=== PATIENT | female | born 1970 | race Caucasian/White ===

== ENCOUNTER 2022-08-21 11:27 | Emergency (ER) | payer OTHER ==
[2022-08-21 11:40] VITALS: RESP 18; TEMP 98.1
[2022-08-21] MEDS ORDERED: SODIUM CHLORIDE 0.9% 500 ML 500 ML IV STA (11:52)
[2022-08-21] MEDS ORDERED: HYDROmorphone 0.5 MG/0.5 ML SYRINGE IVP STA (11:54)
--- NOTE | 2022-08-21 12:34 | XR ---
EXAMINATION TYPE: XR chest 2V DATE OF EXAM: 08/21/2022 COMPARISON: NONE HISTORY: Chest pain TECHNIQUE: Frontal and lateral views of the chest are obtained. FINDINGS: The heart size is normal. The cardiomediastinal silhouette and pulmonary vasculature are w ithin normal limits. There is no focal consolidation, significant pleural effusion, or pneumothorax. IMPRESSION: No acute cardiopulmonary process.
[2022-08-21 12:49] LABS: ALT 25 U/L (4-34); AST 28 U/L (14-36); African American GFR (CKD) >90 (>60 ml/min/1.73 sqM); Alkaline Phosphatase 95 U/L (38-126); Anion Gap 8 mmol/L; Blood Urea Nitrogen 4 mg/dL (7-17); Calcium 9.3 mg/dL (8.4-10.2); Carbon Dioxide 24 mmol/L (22-30); Chloride 109 mmol/L (98-107); Glucose 113 mg/dL (74-99); Non-African American GFR(CKD) >90 (>60 ml/min/1.73 sqM); Potassium 3.5 mmol/L (3.5-5.1); Sodium 141 mmol/L (137-145); Total Bilirubin 0.6 mg/dL (0.2-1.3); Total Protein 6.8 g/dL (6.3-8.2)
[2022-08-21 12:53] LABS: Basophils % (A) 0 %; Eosinophils # (A) 0.1 k/uL (0-0.7); Eosinophils % (A) 1 %; HCT 44.2 % (34.0-46.0); Lymphocytes # (A) 2.3 k/uL (1.0-4.8); Lymphocytes % (A) 21 %; MCH 32.2 pg (25.0-35.0); MCV 94.8 fL (80.0-100.0); Mean Platelet Volume 7.6; Monocytes # (A) 0.6 k/uL (0-1.0); Monocytes % (A) 6 %; Neutrophils # (A) 7.6 k/uL (1.3-7.7); Neutrophils % (A) 71 %; Platelet Count 279 k/uL (150-450); RBC 4.66 m/uL (3.80-5.40); RDW 12.8 % (11.5-15.5); WBC 10.8 k/uL (3.8-10.6)
[2022-08-21 12:55] LABS: Appearance,Urine Clear (Clear); Bilirubin,Urine Negative (Negative); Blood,Urine Negative (Negative); Color,Urine Yellow; Glucose,Urine (UA) Negative (Negative); Ketones,Urine Negative (Negative); Leukocyte Esterase,Urine Negative (Negative); Nitrite,Urine Negative (Negative); PH, Urine 7.5 (5.0-8.0); Protein,Urine Negative (Negative); Specific Gravity,Urine 1.009 (1.001-1.035); Urobilinogen,Urine <2.0 mg/dL (<2.0)
--- NOTE | 2022-08-21 13:10 | ED ---
General Adult HPI - General Chief complaint: Chest Pain Stated complaint: Urogenital Time Seen by Provider: 08/21/22 11:40 Source: patient, RN notes reviewed, old records reviewed Mode of arrival: ambulatory Limitations: no limitations - History of Present Illness Initial comments: This a 52-year-old female presents emergency Department complaining that she has had problems in the rectal and vaginal areas over the last month. She can find a primary medical care doctor and she states the pain is been some excruciating that she needs to come in today. Patient states the pressure on her rectum and she thinks she was having rectal prolapse but the mass that needs to be there is no longer there. And now she feels as though something is in her vagina. Patient states mainly she came in today because she started to experience severe pain in that she felt as though the pain was causing sweat and feels so she was short of breath. Patient states she had little sharp chest pain that lasts one or 2 seconds but nothing significant. Patient denies any fever chills. Patient denies a cough per patient denies lightheadedness or dizziness. After I went back in and interviewed her when the pain was under control she was missed understanding what was going on she does not have any rectal prolapse she states it's a rectocele she believes coming out of her vagina. Patient states also her abdomen was very distended at one point time and she had bilateral leg swelling when this occurred. Patient states she had an ultrasound a pelvis and legs 2 days ago and they were negative according to the primary medical care doctor - Related Data Home Medications Medication Instructions Recorded Confirmed ALPRAZolam [Xanax] 0.5 mg PO DAILY PRN 08/21/22 08/21/22 Albuterol Sulfate [Ventolin HFA] 1 puff INHALATION RT-Q4H PRN 08/21/22 08/21/22 Baclofen [Lioresal] 20 mg PO HS 08/21/22 08/21/22 Ergocalciferol (Vitamin D2) 1,250 mcg PO SA 08/21/22 08/21/22 [Drisdol (50,000 Iu)] Famotidine [Pepcid] 40 mg PO HS 08/21/22 08/21/22 Ibuprofen [Motrin] 800 mg PO BID-W/MEALS PRN 08/21/22 08/21/22 Omeprazole [PriLOSEC] 40 mg PO DAILY 08/21/22 08/21/22 Ondansetron [Zofran] 4 mg PO Q12HR PRN 08/21/22 08/21/22 guanFACINE [Tenex] 1 mg PO TID 08/21/22 08/21/22 Allergies Allergy/AdvReac Type Severity Reaction Status Date / Time hydrocodone [From Vicodin] Allergy Swelling Verified 08/21/22 14:40 Review of Systems ROS Statement: Those systems with pertinent positive or pertinent negative responses have been documented in the HPI. ROS Other: All systems not noted in ROS Statement are negative. Past Medical History Past Medical History: Neurologic Disorder Additional Past Medical History / Comment(s): CMT, History of Any Multi-Drug Resistant Organisms: None Reported Past Surgical History: Uterine Ablation Additional Past Surgical History / Comment(s): des gallegos Past Psychological History: Anxiety Smoking Status: Current every day smoker Past Alcohol Use History: None Reported Past Drug Use History: Marijuana General Exam - General Exam Comments Initial Comments: GENERAL: Patient is well-developed and well-nourished. Patient is nontoxic and well- hydrated and is in mild distress. ENT: Neck is soft and supple. No significant lymphadenopathy is noted. Oropharynx is clear. Moist mucous membranes. Neck has full range of motion without eliciting any pain. EYES: The sclera were anicteric and conjunctiva were pink and moist. Extraocular movements were intact and pupils were equal round and reactive to light. Eyelids were unremarkable. PULMONARY: Unlabored respirations. Good breath sounds bilaterally. No audible rales rhonchi or wheezing was noted. CARDIOVASCULAR: There is a regular rate and rhythm without any murmurs gallops or rubs. ABDOMEN: Soft and nontender with normal bowel sounds. SKIN: Skin is clear with no lesions or rashes and otherwise unremarkable. NEUROLOGIC: Patient is alert and oriented x3. Cranial nerves II through XII are grossly intact. Motor and sensory are also intact. Normal speech, volume and content. Symmetrical smile. MUSCULOSKELETAL: Normal extremities with adequate strength and full range of motion. LYMPHATICS: No significant lymphadenopathy is noted PSYCHIATRIC: Normal psychiatric evaluation. GENITALIA: I did a bimanual exam and a speculum exam and I no rectocele or no mass or anything that would explain the bulging that the patient experienced Limitations: no limitations Course Vital Signs 08/21/22 11:35 Temperature 98.1 F Pulse Rate 108 H Respiratory 18 Rate Blood Pressure 133/80 O2 Sat by Pulse 99 Oximetry Medical Decision Making - Medical Decision Making EKG was interpreted by myself shows a sinus rhythm at 89 bpm NV interval 111 QRSs 87 2 QT interval 360 QTC is 416. Patient's EKG shows no ST segment elevation or depression Was pt. sent in by a medical professional or institution (, PA, AUDIT SPEC, urgent care, hospital, or half-way...) When possible be specific @ -No Did you speak to anyone other than the patient for history (EMS, parent, family, police, friend...)? What history was obtained from this source @ -No Did you review nursing and triage notes (agree or disagree)? Why? @ -I reviewed and agree with nursing and triage notes Were old charts reviewed (outside hosp., previous admission, EMS record, old EKG, old radiological studies, urgent care reports/EKG's, half-way records)? Report findings @ -No old charts were reviewed Differential Diagnosis (chest pain, altered mental status, abdominal pain women, abdominal pain men, vaginal bleeding, weakness, fever, dyspnea, syncope, headache, dizziness, GI bleed, back pain, seizure, CVA, palpatations, mental health, musculoskeletal)? @ -Differential Chest Pain: Stable Angina, Unstable Angina, STEMI, NSTEMI Aortic Dissection, Pneumothorax, Musculoskeletal, Esophageal Spasm GERD, Cholecystitis, Pancreatitis, Zoster, this is not meant to be an all-inclusive list. Differential Abdominal Pain Men: Appendicitis, cholecystitis, diverticulosis, rectocele, ischemic bowel, pancreatitis, hepatitis, UTI, gastroenteritis, AAA, incarcerated hernia, bowel obstruction, constipation, inflammatory bowel, hepatitis, peptic ulcer disease, splenic infarction, perforated viscus, testicular torsion, this is not meant to be an all-inclusive list EKG interpreted by me (3pts min.). @ -As above X-rays interpreted by me (1pt min.). @ -Chest x-ray was interpreted by me that showed no acute abnormality. CT interpreted by me (1pt min.). @ -CT of the abdomen and pelvis was interpreted by myself and it showed no acute abnormality U/S interpreted by me (1pt. min.). @ -None done What testing was considered but not performed or refused? (CT, X-rays, U/S, labs)? Why? @ -None What meds were considered but not given or refused? Why? @ -None Did you discuss the management of the patient with other professionals (edyta almanzar i.e. , PA, AUDIT SPEC, lab, RT, psych nurse, long term care social worker, statistics intern, teacher, space operations officer, case packer and sealer)? Give summary @ -No Was smoking cessation discussed for >3mins.? @ -No Was critical care preformed (if so, how long)? @ -No Were there social determinants of health that impacted care today? How? (Homelessness, low income, unemployed, alcoholism, drug addiction, transpor tation, low edu. Level, literacy, decrease access to med. care, correction, rehab)? @ -No Was there de-escalation of care discussed even if they declined (Discuss DNR or withdrawal of care, Hospice)? DNR status @ -No What co-morbidities impacted this encounter? (DM, HTN, Smoking, COPD, CAD, Cancer, CVA, ARF, Chemo, Hep., AIDS, mental health diagnosis, sleep apnea, morbid obesity)? @ -None Was patient admitted / discharged? Hospital course, mention meds given and route, prescriptions, significant lab abnormalities, going to OR and other pertinent info. @ -Initially patient was stating that she had a rectal prolapse but after I went back and into the exam on her she was stating that she did not have anything coming out of her anus she described bulging out of her vagina which was not her original description. On examination I saw no rectocele but no bulging felt no masses on bimanual exam or on speculum exam. There was no prolapsed rectum either. Patient did receive pain medicine and was doing considerably better. Patient's EKG showed no acute abnormality. I spoke with Dr. Gio Powers stated that she would see the patient next week. Undiagnosed new problem with uncertain prognosis? @ -No Drug Therapy requiring intensive monitoring for toxicity (Heparin, Nitro, Insulin, Cardizem)? @ -No Were any procedures done? @ -No Diagnosis/symptom? @ -Vaginal pain Acute, or Chronic, or Acute on Chronic? @ -Acute Uncomplicated (without systemic symptoms) or Complicated (systemic symptoms)? @ -Complicated Side effects of treatment? @ -No Exacerbation, Progression, or Severe Exacerbation? @ -No Poses a threat to life or bodily function? How? (Chest pain, USA, DC, pneumonia, PE, COPD, DKA, ARF, appy, cholecystitis, CVA, Diverticulitis, Homicidal, Suicidal, threat to staff... and all critical care pts) @ -No - Lab Data Result diagrams: 08/21/22 12:06 08/21/22 12:06 Lab Results 08/21/22 08/21/22 08/21/22 Range/Units 12:06 12:06 12:06 WBC 10.8 H (3.8-10.6) k/uL RBC 4.66 (3.80-5.40) m/uL Hgb 15.0 (11.4-16.0) gm/dL Hct 44.2 (34.0-46.0) % MCV 94.8 (80.0-100.0) fL MCH 32.2 (25.0-35.0) pg MCHC 34.0 (31.0-37.0) g/dL RDW 12.8 (11.5-15.5) % Plt Count 279 (150-450) k/uL MPV 7.6 Neutrophils % 71 % Lymphocytes % 21 % Monocytes % 6 % Eosinophils % 1 % Basophils % 0 % Neutrophils # 7.6 (1.3-7.7) k/uL Lymphocytes # 2.3 (1.0-4.8) k/uL Monocytes # 0.6 (0-1.0) k/uL Eosinophils # 0.1 (0-0.7) k/uL Basophils # 0.0 (0-0.2) k/uL PT 10.6 (9.0-12.0) sec INR 1.0 (<1.2) APTT 23.1 (22.0-30.0) sec Sodium 141 (137-145) mmol/L Potassium 3.5 (3.5-5.1) mmol/L Chloride 109 H (98-107) mmol/L Carbon Dioxide 24 (22-30) mmol/L Anion Gap 8 mmol/L BUN 4 L (7-17) mg/dL Creatinine 0.64 (0.52-1.04) mg/dL Est GFR (CKD-EPI)AfAm >90 (>60 ml/min/1.73 sqM) Est GFR (CKD-EPI)NonAf >90 (>60 ml/min/1.73 sqM) Glucose 113 H (74-99) mg/dL Calcium 9.3 (8.4-10.2) mg/dL Magnesium 2.0 (1.6-2.3) mg/dL Total Bilirubin 0.6 (0.2-1.3) mg/dL AST 28 (14-36) U/L ALT 25 (4-34) U/L Alkaline Phosphatase 95 (38-126) U/L Troponin I (0.000-0.034) ng/mL Total Protein 6.8 (6.3-8.2) g/dL Albumin 4.0 (3.5-5.0) g/dL Urine Color Urine Appearance (Clear) Urine pH (5.0-8.0) Ur Specific [place] (1.001-1.035) Urine Protein (Negative) Urine Glucose (UA) (Negative) Urine Ketones (Negative) Urine Blood (Negative) Urine Nitrite (Negative) Urine Bilirubin (Negative) Urine Urobilinogen (<2.0) mg/dL Ur Leukocyte Esterase (Negative) 08/21/22 08/21/22 Range/Units 12:06 12:15 WBC (3.8-10.6) k/uL RBC (3.80-5.40) m/uL Hgb (11.4-16.0) gm/dL Hct (34.0-46.0) % MCV (80.0-100.0) fL MCH (25.0-35.0) pg MCHC (31.0-37.0) g/dL RDW (11.5-15.5) % Plt Count (150-450) k/uL MPV Neutrophils % % Lymphocytes % % Monocytes % % Eosinophils % % Basophils % % Neutrophils # (1.3-7.7) k/uL Lymphocytes # (1.0-4.8) k/uL Monocytes # (0-1.0) k/uL Eosinophils # (0-0.7) k/uL Basophils # (0-0.2) k/uL PT (9.0-12.0) sec INR (<1.2) APTT (22.0-30.0) sec Sodium (137-145) mmol/L Potassium (3.5-5.1) mmol/L Chloride (98-107) mmol/L Carbon Dioxide (22-30) mmol/L Anion Gap mmol/L BUN (7-17) mg/dL Creatinine (0.52-1.04) mg/dL Est GFR (CKD-EPI)AfAm (>60 ml/min/1.73 sqM) Est GFR (CKD-EPI)NonAf (>60 ml/min/1.73 sqM) Glucose (74-99) mg/dL Calcium (8.4-10.2) mg/dL Magnesium (1.6-2.3) mg/dL Total Bilirubin (0.2-1.3) mg/dL AST (14-36) U/L ALT (4-34) U/L Alkaline Phosphatase (38-126) U/L Troponin I <0.012 (0.000-0.034) ng/mL Total Protein (6.3-8.2) g/dL Albumin (3.5-5.0) g/dL Urine Color Yellow Urine Appearance Clear (Clear) Urine pH 7.5 (5.0-8.0) Ur Specific [place] 1.009 (1.001-1.035) Urine Protein Negative (Negative) Urine Glucose (UA) Negative (Negative) Urine Ketones Negative (Negative) Urine Blood Negative (Negative) Urine Nitrite Negative (Negative) Urine Bilirubin Negative (Negative) Urine Urobilinogen <2.0 (<2.0) mg/dL Ur Leukocyte Esterase Negative (Negative) Disposition Clinical Impression: Vaginal discomfort Disposition: HOME SELF-CARE Condition: Good Instructions (If sedation given, give patient instructions): Uterine Prolapse (ED), Rectocele (ED) Is patient prescribed a controlled substance at d/c from ED?: No Referrals: Millicent Powers DO [Doctor of Osteopathic Medicine] - 1-2 days Time of Disposition: 14:54
[2022-08-21 13:14] LABS: Partial Thromboplastin Time 23.1 sec (22.0-30.0); Prothrombin Time 10.6 sec (9.0-12.0)
--- NOTE | 2022-08-21 14:31 | CT ---
EXAMINATION TYPE: CT abdomen pelvis w con DATE OF EXAM: 08/21/2022 HISTORY: vaginal pain CT DLP: 639.1mGycm Automated Exposure Control for Dose Reduction was Utilized. CONTRAST: CT scan of the abdomen and pelvis is performed without oral and with IV Contrast, patient injected wi th 100 mL of Isovue 300. COMPARISON: None. FINDINGS: LUNG BASES: Tiny pericardial effusion along the anterior inferior aspect. LIVER/GB: No significant abnormality is appreciated. PANCREAS: No significant abnormality is seen. SPLEEN: No significant abnormality is seen. ADRENALS: No significant abnormality is seen. KIDNEYS: No significant abnormality is seen. BOWEL: Slightly suboptimal evaluation without enteric contrast. No suspicious small or large bowel di latation. Low-lying cecum into the right pelvis UTERUS/ADNEXA: Anteverted uterus. Multiple scattered small rounded pelvic phleboliths. LYMPH NODES: No greater than 1cm abdominal or pelvic lymph nodes are appreciated. OSSEOUS STRUCTURES: Mild to moderate anterior spurring and disc space narrowing L2-L3 level. Some fac et arthropathy in the lower lumbar levels OTHER: No significant additional abnormality is seen. IMPRESSION: No significant acute finding is seen to account for patient's clinical symptoms of vagina l pain.
[2022-08-21 15:09] VITALS: BP 138/77; PULSE 74
== END 2022-08-21 15:09 | disposition home or self-care (01) ==
LOC: EC 11:27
DX: N76.89 Other specified inflammation of vagina and vulva (principal); F41.9 Anxiety disorder, unspecified; F17.200 Nicotine dependence, unspecified, uncomplicated; F12.90 Cannabis use, unspecified, uncomplicated; Z88.5 Allergy status to narcotic agent
CPT/HCPCS: 36415; 80053; 83735; 84484; 85025; 85610; 85730; 81003; 71046; 74177; 99285; 96374; 96361; J1170; Q9967; 93005

== ENCOUNTER 2022-12-01 06:24 | Day surgery (SDC) | payer OTHER ==
[2022-11-24 14:40] VITALS: BMI 23.3
[~2022-12-01 06:24] MED LIST: LACTATED RINGERS 1,000 ML IV SCH
[2022-12-01 07:16] VITALS: RESP 16; TEMP 97.2
[2022-12-01] MEDS ORDERED: LIDOCAINE 2% INJ 20 MG/ML (2 ML VIAL) ONE (07:23)
[2022-12-01] MEDS ORDERED: PROPOFOL 10 MG/ML 20 ML VIAL IV ONE (07:23)
--- NOTE | 2022-12-01 07:47 | P.PCN ---
Date of Procedure: 12/01/22 Procedure(s) Performed: Brief history: Patient is a pleasant 52-year-old white white female scheduled for an elective upper endoscopy as well as colonoscopy as a part of evaluation of GERD/change in bowel habits Procedure performed: Esophagogastroduodenoscopywith biopsy Colonoscopy Preoperative diagnosis: GERD Change in bowel habits Anesthesia: MAC Procedure: After informed consent was obtained from the patient was brought into the endoscopy unit and IV sedation was administered by anesthesia under continuous monitoring. Initially upper endoscopy was done. The Olympus GF 160 video endoscope was inserted inserted into the mouth and esophagus intubated without any difficulty and was gradually advanced into the stomach and duodenum and carefully examined. The bulb and second part of the duodenum appeared normal. The scope was then withdrawn into the stomach adequately insufflated with air and upon careful examination the antrumhad mild gastritis and biopsies were done from this area. Mucosa of the body, cardia and fundus appeared normal. The scope was then withdrawn into the esophagus. Small hiatal hernia seen. The GE junction was located at 40 cm to the incisors. It appeared regular with 2 superficial erosions consistent with LA grade a reflux esophagitis. Rest of the esophagus appeared normal. Patient tolerated the procedure well. At this time the patient continued to remain sedation. Initial digital rectal examination was normal. Olympus CF 160 video colonoscope was then inserted into the rectum and gradually advanced to the cecum without any difficulty. Careful examination was performed as the scope was gradually being withdrawn. The prep was excellent. The cecum, ascending colon, transverse colon, descending colon, sigmoid colon and rectum appeared normal. Retroflexion was performed in the rectum and no lesions were noted. Patient tolerated the procedure well. Impression: 1.Upper endoscopy revealed small hiatal hernia, mild antral gastritis and LA grade A reflux esophagitis 2.Colonoscopy was within normal limits with no evidence of colorectal neoplasia Recommendations: Findings of this examination were discussed with the patient as well velasquez family. She was advised to continue with omeprazole 40 mg daily and follow antireflux measures. Recommend repeat screening colonoscopy in 10 years.
[2022-12-01 08:53] VITALS: BP 135/78; PULSE 62
== END 2022-12-01 08:22 | disposition home or self-care (01) ==
LOC: ORWHC2ENDO 06:24
PROVIDERS: ATTEND Internal Medicine Gastroenterology
DX: K29.50 Unspecified chronic gastritis without bleeding (principal); K44.9 Diaphragmatic hernia without obstruction or gangrene; K59.09 Other constipation; K21.00 Gastro-esophageal reflux disease with esophagitis, without bleeding; F12.90 Cannabis use, unspecified, uncomplicated; J45.909 Unspecified asthma, uncomplicated; Z87.891 Personal history of nicotine dependence; Z79.899 Other long term (current) drug therapy
CPT/HCPCS: 88305; 45378; 43239; J2704; J2001

== ENCOUNTER 2023-01-14 05:34 | Day surgery (SDC) | payer OTHER ==
[2023-01-11 18:01] VITALS: BMI 22.8
--- NOTE | 2023-01-13 14:37 | P.HPOB ---
History of Present Illness H&P Date: 01/13/23 Chief Complaint: pelvic organ prolapse 52 year old presents for Total Laparoscopic hysterectomy bilateral salpingo-oopherectomy using da lonnie and diagnostic cystoscopy, possible anterior, posterior repair and possible BRYNN BSO. Review of Systems All systems: negative Constitutional: Denies chills, Denies fever Eyes: denies blurred vision, denies pain Ears, nose, mouth and throat: Denies headache, Denies sore throat Cardiovascular: Denies chest pain, Denies shortness of breath Respiratory: Denies cough Gastrointestinal: Denies abdominal pain, Denies diarrhea, Denies nausea, Denies vomiting Genitourinary: Denies dysuria, Denies hematuria Musculoskeletal: Denies myalgias Integumentary: Denies pruritus, Denies rash Neurological: Denies numbness, Denies weakness Psychiatric: Denies anxiety, Denies depression Endocrine: Denies fatigue, Denies weight change Past Medical History Past Medical History: Asthma, Neurologic Disorder, Pneumonia Additional Past Medical History / Comment(s): CMT History of Any Multi-Drug Resistant Organisms: None Reported Past Surgical History: Uterine Ablation Additional Past Surgical History / Comment(s): ABDOMINOPLASTY. BREAST AUGMENTATION AND REMOVAL Past Anesthesia/Blood Transfusion Reactions: No Reported Reaction Additional Past Anesthesia/Blood Transfusion Reaction / Comment(s): no blood transfusion Past Psychological History: ADD/ADHD, Anxiety, Depression, Panic Disorder, PTSD Smoking Status: Current every day smoker Past Alcohol Use History: None Reported Additional Past Alcohol Use History / Comment(s): smokes 1 ppd Past Drug Use History: Marijuana Additional Drug Use History / Comment(s): edibles ,gummies , smokes daily - Past Family History Mother Family Medical History: No Reported History Medications and Allergies Home Medications Medication Instructions Recorded Confirmed Type ALPRAZolam [Xanax] 0.5 mg PO DAILY PRN 08/21/22 01/11/23 History Albuterol Sulfate [Ventolin HFA] 1 puff INHALATION RT-Q4H PRN 08/21/22 01/11/23 History Baclofen [Lioresal] 20 mg PO HS 08/21/22 01/11/23 History Ergocalciferol (Vitamin D2) 1,250 mcg PO SA 08/21/22 01/11/23 History [Drisdol (50,000 Iu)] Famotidine [Pepcid] 40 mg PO HS 08/21/22 01/11/23 History Ibuprofen [Motrin] 800 mg PO BID-W/MEALS PRN 08/21/22 01/11/23 History Omeprazole [PriLOSEC] 40 mg PO DAILY 08/21/22 01/11/23 History Ondansetron [Zofran] 4 mg PO Q12HR PRN 08/21/22 01/11/23 History DULoxetine HCL [Cymbalta] 30 mg PO DAILY 11/24/22 01/11/23 History Doxepin HCl [SINEquan] 100 mg PO DAILY 11/24/22 01/11/23 History Gabapentin 600 mg PO HS 11/24/22 01/11/23 History Gabapentin [Neurontin] 200 mg PO DAILY 11/24/22 01/11/23 History Montelukast [Singulair] 10 mg PO DAILY 11/24/22 01/11/23 History Sennosides/Docusate Sodium 1 each PO Q48H 11/24/22 01/11/23 History [Senna-S 8.6-50 mg Tablet] busPIRone HCL [Buspar] 15 mg PO TID 11/24/22 01/11/23 History clonazePAM [KlonoPIN] 1 mg PO BID 01/11/23 01/11/23 History Allergies Allergy/AdvReac Type Severity Reaction Status Date / Time hydrocodone [From Vicodin] Allergy Swelling Verified 01/11/23 17:50 Exam Osteopathic Statement: *. No significant issues noted on an osteopathic structural exam other than those noted in the History and Physical/Consult. HEart: RRR Lungs: CTAB Abdomen: soft, nontender Extremeties: neg martha's Assessment and Plan (1) Pelvic organ prolapse quantification stage 1 cystocele Status: Acute Code(s): N81.10 - CYSTOCELE, UNSPECIFIED SNOMED Code(s): 004742584 Plan: 1. TLH BSO using da lonnie, diagnostic cystoscopy, possible A/P repair and possible BRYNN BSO
[~2023-01-14 05:34] MED LIST changes: +DEXAMETHASONE SOD PHOSPHATE 4 MG/ML 1 ML VIAL IV ONE; -LACTATED RINGERS 1,000 ML IV SCH; +ONDANSETRON 4 MG/2 ML VIAL IVP ONE; +fentaNYL (PF) 50 MCG/ML 2 ML AMP IV PRN
[2023-01-14] MEDS: LACTATED RINGERS 1,000 ML IV SCH (06:13)
[2023-01-14] MEDS ORDERED: MIDAZOLAM 2 MG/2 ML VIAL IVP ONE (06:50)
[2023-01-14] MEDS ORDERED: fentaNYL (PF) 50 MCG/ML 2 ML AMP IVP ONE ×2 (06:51→06:55)
[2023-01-14] MEDS ORDERED: SCOPOLAMINE 1 MG/72 HR PATCH TRANSDERM ONE (06:52)
--- NOTE | 2023-01-14 07:10 | P.ANPRN ---
Procedure Note - Anesthesia - Nerve Block Performed Bilateral Transversus Abdominis Single Indication: Acute Post-Operative Pain, Requested by Surgeon Sedation Type: Sedate with meaningful contact maintained Preparation: Sterile Prep Position: Supine Catheter: None Needle Types: Facet Needle Gauge: 21 Ultrasound used to visualize needle placement: Yes Ultrasound used to observe medication spread: Yes Injectate: 0.5% Ropivacaine (see comment for volume) (30 mls +20 mls NS(25 mls on each side)) Blood Aspirated: No Pain Paresthesia on Injection Noted: No Resistance on Injection: Normal Image Stored and Saved: Yes
[2023-01-14] MEDS ORDERED: fentaNYL (PF) 50 MCG/ML 2 ML AMP ONE (07:15)
[2023-01-14] MEDS ORDERED: SODIUM CHLORIDE 0.9% (PF) 10 ML VIAL ONE (07:15)
[2023-01-14] MEDS ORDERED: ROCURONIUM 10 MG/ML (5 ML VIAL) IV ONE (07:15)
[2023-01-14] MEDS ORDERED: KETOROLAC 15 MG/ML 1 ML VIAL ONE (07:15)
[2023-01-14] MEDS ORDERED: HYDROmorphone (PF) 1 MG/ML ONE (07:15)
[2023-01-14] MEDS ORDERED: PROPOFOL 10 MG/ML 20 ML VIAL IV ONE (07:15)
[2023-01-14] MEDS ORDERED: PHENYLEPHRINE-0.9% NACL SYG 1,000 MCG/10 ML SYRINGE ONE (07:15)
[2023-01-14] MEDS ORDERED: ROPIVACAINE 5 MG/ML 30 ML VIAL ONE (07:15)
[2023-01-14] MEDS ORDERED: LIDOCAINE 2% INJ 20 MG/ML (2 ML VIAL) ONE (07:15)
[2023-01-14] MEDS ORDERED: NEOSTIGMINE 1 MG/ML 10 ML VIAL ONE (07:15)
[2023-01-14] MEDS ORDERED: SUCCINYLCHOLINE CHLORIDE 200 MG/10 ML VIAL IV ONE (07:15)
[2023-01-14] MEDS ORDERED: GLYCOPYRROLATE 0.2 MG/ML 2 ML VIAL ONE (07:15)
[2023-01-14] MEDS ORDERED: BUPIVACAINE (PF) 0.25% 30 ML VIAL SQ ONE ×3 (08:03)
[2023-01-14] MEDS ORDERED: VASOPRESSIN 20 UNIT/ML 1 ML VIAL SQ ONE (08:03)
[2023-01-14] MEDS ORDERED: LACTATED RINGERS 1,000 ML IV ONE (08:44)
[2023-01-14] MEDS ORDERED: Acetaminophen-Codeine 300-30mg TAB PO PRN ×2 (09:06)
[2023-01-14] MEDS ORDERED: METOCLOPRAMIDE 5 MG/ML 2 ML VIAL IVP PRN (09:06)
[2023-01-14] MEDS ORDERED: ONDANSETRON 4 MG/2 ML VIAL IVP PRN (09:06)
[2023-01-14] MEDS ORDERED: diphenhydrAMINE 50 MG/ML 1 ML VIAL IVP PRN (09:06)
[2023-01-14] MEDS ORDERED: KETOROLAC 15 MG/ML 1 ML VIAL IVP PRN (09:06)
[2023-01-14] MEDS ORDERED: SIMETHICONE 80 MG CHEWABLE PO PRN (09:06)
--- NOTE | 2023-01-14 09:06 | P.OP ---
Date of Procedure: 01/14/23 Preoperative Diagnosis: 1. pelvic organ prolapse Postoperative Diagnosis: 1. pelvic organ prolapse Procedure(s) Performed: Total Laparoscopic hysterectomy bilateral salpingo-oopherectomy using da vinic with diagnostic cystoscopy and rectocele repair Anesthesia: KYLAH Surgeon: Millicent Powers Consulting Application Engineer #1: Rajwinder Gonzalez Estimated Blood Loss (ml): 50 IV fluids (ml): 1,000 Urine output (ml): 250 Pathology: other (uterus, cervix, bilateral tubes and ovaries, vaginal mucosa) Condition: stable Disposition: PACU Operative Findings: uterus sounded to 8cm. normal tubes and ovaries Description of Procedure: Patient taken the operating room where general anesthesia was obtained without difficulty. She is prepped and draped in normal sterile fashion dorsal lithotomy position, legs placed in the Tiburcio stirrups. Weighted speculum placed in the vagina and the anterior lip the cervix was grasped with single-tooth tenaculum. The uterus sounded to 8 cm and the cervix diameter was 3.5 cm. The appropriate manipulator tip and ring were placed on the Ana manipulator. The Ana manipulator was then placed in the uterus. Tripathi catheter was also placed. Attention was then turned to the abdomen and gloves were changed. A 5 mm supraumbilical incision was made the scalpel and a 5 mm optical trocar was placed under direct visualization. 10 cm to the right of this and 2 cm down a 5 mm incision was made and 8 mm da Quintin port was placed under direct visualization. Same measurements on the opposite side of the patient's abdomen, the 5 mm incision was made and 8 mm da Quintin port was placed under direct visualization. In the left upper quadrant a 10 mm incision was made and a 10 mm optical trocar was placed under direct visualization. The 5 mm optical trocar was then replaced with the 8 mm da Quintin camera port. The robot was docked on patient's right side. The camera was introduced and then the monopolar curved scissor and the vessel sealer placed under direct visualization. I broke scrub and went to the physician console. The left infundibulopelvic ligament was sealed and cut with the vessel sealer. The left round ligament was sealed and cut with the vessel sealer. The posterior leaf of the broad ligament was taken down using the monopolar curved scissors. Anterior leaf of the broad ligament was then taken down using the monopolar curved scissors. The uterine artery was sealed and cut with the vessel sealer. The bladder flap was then started using the monopolar curved scissors. Attention was then turned to the right side of the patient's anatomy and the right infundibular pelvic ligament was cauterized with the [place] bipolar and cut with monopolar curved scissors. The right round ligament was cauterized with the [place] bipolar and cut with monopolar curved scissors. Posterior leaf of the broad ligament was taken down using the monopolar curved scissors and the anterior leaf was taken down using the monopolar curved scissors. The uterine artery was sealed and cut with the vessel sealer. The bladder flap was then finished on this side. Anterior colpotomy was made using the monopolar curved scissors. The rest of the uterus was from the vaginal cuff by following the ring around with the monopolar curved scissors through the uterosacral ligaments back to the anterior portion. Once the uterus and cervix were amputated they were pulled through the vaginal cuff. Hemostasis was assured. The instruments were changed for the Cardier forcep and the sly suture cut. The vaginal cuff was then closed using 2-O stratafix barbed suture in a running fashion. Hemostasis was again assured and the pelvis was irrigated. All instruments were removed from the abdomen and the robot was undocked. I scrubbed back in to examine the patient. I noted that the cystocele has resolved with the removal of the uterus. She does have a grade 2 rectocele. Allis clamps were placed on the posterior mucosa and diluted vasopressin was injected in the posterior mucosa.A linear cut was made with the #10 blade. The Metzenbaums were used to underscore the vaginal mucosa and cut up the line of the rectocele. The mucosa was peeled off the underlying fascia. A urology needle with 0 Vicryl was used to do Inge plication stitches. The excess vaginal mucosa was trimmed and closed with 0 Vicryl in a running locked fashion. Hemostasis was assured. I then removed the catheter to perform a cystoscopy. There were jets from both ureteral orifices. The abdominal incisions were closed with 4-0 Vicryl in a subcuticular fashion. Patient tolerated the procedure well, sponge and instrument counts correct 2 and she was taken to recovery room in stable condition condition
[2023-01-14] MEDS ORDERED: ALPRAZolam 0.5 MG TAB PO PRN (09:08)
[2023-01-14] MEDS ORDERED: HYDROmorphone 0.5 MG/0.5 ML SYRINGE IVP ONE ×2 (09:32→09:39)
[2023-01-14] MEDS: IBUPROFEN 600 MG TAB PO PRN (16:37)
[2023-01-14] MEDS: busPIRone HCl 5 MG TAB PO SCH ×2 (16:41→21:00)
[2023-01-14] MEDS ORDERED: GABAPENTIN 300 MG CAP PO SCH (21:00)
[2023-01-14] MEDS: SENNOSIDES-DOCUSATE SODIUM 1 EACH TAB PO SCH (21:00)
[2023-01-14] MEDS: FAMOTIDINE 20 MG TAB PO SCH (21:00)
[2023-01-14] MEDS ORDERED: BACLOFEN 10 MG TAB PO SCH (21:00)
[2023-01-14] MEDS: clonazePAM 1 MG TAB PO SCH (21:00)
[2023-01-15] MEDS: LACTATED RINGERS 1,000 ML IV SCH (05:39)
[2023-01-15 05:57] LABS: Basophils % (A) 0 %; Eosinophils # (A) 0.1 k/uL (0-0.7); Eosinophils % (A) 1 %; HCT 42.3 % (34.0-46.0); HGB 13.7 gm/dL (11.4-16.0); Lymphocytes # (A) 2.6 k/uL (1.0-4.8); Lymphocytes % (A) 15 %; MCH 32.2 pg (25.0-35.0); MCHC 32.4 g/dL (31.0-37.0); MCV 99.6 fL (80.0-100.0); Mean Platelet Volume 7.5; Monocytes # (A) 0.8 k/uL (0-1.0); Monocytes % (A) 5 %; Neutrophils # (A) 13.3 k/uL (1.3-7.7); Neutrophils % (A) 78 %; Platelet Count 245 k/uL (150-450); RBC 4.25 m/uL (3.80-5.40); RDW 13.7 % (11.5-15.5)
[2023-01-15] MEDS ORDERED: PANTOPRAZOLE 40 MG TABLET PO SCH (07:30)
[2023-01-15] MEDS: IBUPROFEN 600 MG TAB PO PRN (08:30)
[2023-01-15] MEDS: FAMOTIDINE 20 MG TAB PO SCH (08:39)
[2023-01-15 08:50] VITALS: BP 135/69; PULSE 84; RESP 14; TEMP 97.5
[2023-01-15] MEDS ORDERED: DULoxetine HCL 30 MG CAPSULE.DR PO SCH (09:00)
[2023-01-15] MEDS ORDERED: GABAPENTIN 100 MG CAP PO SCH (09:00)
[2023-01-15] MEDS ORDERED: MONTELUKAST 10 MG TAB PO SCH (09:00)
[2023-01-15] MEDS ORDERED: DOXEPIN 25 MG CAP PO SCH (09:00)
[2023-01-15] MEDS ORDERED: ACETAMINOPHEN TAB 325 MG TAB PO PRN (09:07)
[2023-01-15] MEDS: clonazePAM 1 MG TAB PO SCH (10:07)
[2023-01-15] MEDS: busPIRone HCl 5 MG TAB PO SCH (10:07)
[2023-01-15] MEDS: SENNOSIDES-DOCUSATE SODIUM 1 EACH TAB PO SCH (10:08)
== END 2023-01-15 09:30 | disposition home or self-care (01) ==
LOC: OR 05:34 → 4FBP 08:49 → OR 01-15 09:30
PROVIDERS: ATTEND Obstetrics & Gynecology
DX: N80.03 Adenomyosis of the uterus (principal); N80.202 Endometriosis of left fallopian tube, unspecified depth; N76.1 Subacute and chronic vaginitis; N81.6 Rectocele; J45.909 Unspecified asthma, uncomplicated; J18.9 Pneumonia, unspecified organism; F32.A Depression, unspecified; F41.9 Anxiety disorder, unspecified; F41.0 Panic disorder [episodic paroxysmal anxiety]; F43.10 Post-traumatic stress disorder, unspecified; F17.210 Nicotine dependence, cigarettes, uncomplicated; F12.90 Cannabis use, unspecified, uncomplicated; K21.9 Gastro-esophageal reflux disease without esophagitis; Z79.51 Long term (current) use of inhaled steroids; Z79.83 Long term (current) use of bisphosphonates; Z79.899 Other long term (current) drug therapy; Z98.890 Other specified postprocedural states; Z88.5 Allergy status to narcotic agent
CPT/HCPCS: 58571; 57250; 81025; 64488; 86900; 86901; 85025; 86850; 88307; J2250; J1100; J0690; J2405; J3010; J1170; J0665

== ENCOUNTER 2023-09-22 08:57 | Day surgery (SDC) | payer OTHER ==
[2023-09-17 15:18] VITALS: BMI 25.2
[~2023-09-22 08:57] MED LIST changes: -DEXAMETHASONE SOD PHOSPHATE 4 MG/ML 1 ML VIAL IV ONE; +TETRACAINE 0.5% OPHTH (PF) DROPS 4 ML BTL OP PRN; -fentaNYL (PF) 50 MCG/ML 2 ML AMP IV PRN
[2023-09-22] MEDS: CYCLOPENTOLATE 2% OPHTH SOLN 2 ML BTL OP PRN (09:28)
[2023-09-22] MEDS: PHENYLEPHRINE 2.5% OPHTH DRP 2ML OP PRN (09:31)
[2023-09-22 09:44] VITALS: TEMP 98.4
[2023-09-22] MEDS: LACTATED RINGERS 1,000 ML IV SCH (09:53)
[2023-09-22] MEDS ORDERED: MIDAZOLAM 2 MG/2 ML VIAL ONE (10:21)
[2023-09-22] MEDS ORDERED: fentaNYL (PF) 50 MCG/ML 2 ML AMP ONE (10:21)
[2023-09-22] MEDS: BALANCED SALT IRRIG SOLN COMB2 15 ML IRRIG.SOLN INTRAOCULA ONE (10:37)
[2023-09-22] MEDS: LIDOCAINE 1% (PF) 10MG/ML VIAL MISCELLANE ONE (10:37)
[2023-09-22] MEDS: MOXIFLOXACIN HCL 0.5% DROPS 3 ML BTL OP PRN (10:37)
[2023-09-22] MEDS: TIMOLOL 0.5% OPHTH DROPS 5 ML BTL OP PRN (10:37)
[2023-09-22] MEDS: HYALURONATE SODIUM INTRAOCULAR 1 EACH SYRINGE (12MG/ML) INTRAOCULA ONE (10:37)
[2023-09-22] MEDS: EPINEPHrine (PF) 0.3 ML in BALANCED SALT IRRIG SOLN COMB2 500 ML IRRIGATION ONE (10:38)
--- NOTE | 2023-09-22 10:51 | P.OP ---
Date of Procedure: 09/22/23 Preoperative Diagnosis: NS Postoperative Diagnosis: same Procedure(s) Performed: PIOL, OD Implants: [id number] 21.50 Anesthesia: MAC Surgeon: Ephraim Montejo Pathology: none sent Condition: stable Disposition: same day Indications for Procedure: blurry vision Operative Findings: no complications
[2023-09-22 11:37] VITALS: BP 123/60; PULSE 81; RESP 16
--- NOTE | 2023-09-22 14:01 | OP ---
OPERATIVE REPORT DATE OF SERVICE : 09/22/2023 PREOPERATIVE DIAGNOSIS: Nuclear sclerosis, right eye. POSTOPERATIVE DIAGNOSIS: Nuclear sclerosis, right eye. OPERATION: Phacoemulsification of cataract and interocular lens implant, right eye. ESTIMATED BLOOD LOSS: Zero. SPECIMEN TAKEN: None. NARRATIVE: After obtaining the appropriate consent, the patient was brought to the operating room where the patient was placed under cardiac monitoring and prepped and draped in the usual sterile manner. At the 11 o'clock position, a 15-degree super sharp blade was used to create a paracentesis followed by instillation of 1% Xylocaine MPF 50:50 mix with BSS into the anterior chamber. This was followed by Amvisc viscoelastic to stabilize the anterior chamber. At the 9 o'clock position a self-sealing corneal flap incision was created using 2.8 mm kobi keratome. A cystotome was used to initiate a continuous tear capsulorrhexis which was completed with the Utrata forceps. A Binkhorst cannula was used to hydrodissect the lens nucleus followed by hydrodelineation. Phacoemulsification of the lens was performed utilizing phacochop in 7.43 seconds at 8.8% power. The remaining cortical material was removed using the irrigation aspiration mode followed by additional 1% Xylocaine MPF into the anterior chamber followed by viscoelastic to stabilize the capsular bag. A Bausch [employer] Lomb MX 60E 21.5 diopters posterior chamber lens was placed into the capsular bag without difficulty. The remaining viscoelastic material was removed from the anterior chamber with the irrigation/aspiration. Balanced salt solution was used to normalize the intraocular pressure. The incision was checked for watertight integrity. The patient then received 2 drops of 0.5% timolol followed by 2 drops Vigamox, was lightly patched and shielded in the usual manner. There were no complications from the procedure. The patient tolerated the procedure well and was returned to recovery in good condition. MMODL / IJN: [id number] /
== END 2023-09-22 11:28 | disposition home or self-care (01) ==
LOC: OR 08:57
PROVIDERS: ATTEND Ophthalmology
DX: H25.11 Age-related nuclear cataract, right eye (principal); J45.909 Unspecified asthma, uncomplicated; M79.7 Fibromyalgia; K21.9 Gastro-esophageal reflux disease without esophagitis; Z87.891 Personal history of nicotine dependence; Z79.899 Other long term (current) drug therapy; Z98.890 Other specified postprocedural states; Z88.1 Allergy status to other antibiotic agents
CPT/HCPCS: 66984; C1780; J2250; J0171; J3010; J2001

== ENCOUNTER 2023-10-13 08:06 | Day surgery (SDC) | payer OTHER ==
[2023-10-11 14:43] VITALS: BMI 27.4
[~2023-10-13 08:06] MED LIST changes: -ONDANSETRON 4 MG/2 ML VIAL IVP ONE
[2023-10-13] MEDS ORDERED: LIDOCAINE 1% (10MG/ML) FOR IV START INTRADERMA PRN (08:19)
[2023-10-13 08:31] VITALS: TEMP 97.7
[2023-10-13] MEDS: LACTATED RINGERS 1,000 ML IV SCH (08:35)
[2023-10-13] MEDS: IV FLUID CONTINUATION 1,000 ML IV ONE (08:35)
[2023-10-13] MEDS: CYCLOPENTOLATE 1% OPHTH SOLN 2 ML BTL OP PRN (08:40)
[2023-10-13] MEDS: PHENYLEPHRINE 2.5% OPHTH DRP 2ML OP PRN (08:43)
[2023-10-13] MEDS ORDERED: MIDAZOLAM 2 MG/2 ML VIAL ONE (09:43)
[2023-10-13] MEDS ORDERED: fentaNYL (PF) 50 MCG/ML 2 ML AMP ONE (09:43)
[2023-10-13] MEDS: EPINEPHrine (PF) 0.3 ML in BALANCED SALT IRRIG SOLN COMB2 500 ML IRRIGATION ONE (09:51)
[2023-10-13] MEDS: HYALURONATE SODIUM INTRAOCULAR 1 EACH SYRINGE (12MG/ML) INTRAOCULA ONE (09:54)
[2023-10-13] MEDS: LIDOCAINE 1% (PF) 10MG/ML VIAL MISCELLANE ONE (09:55)
[2023-10-13] MEDS: BALANCED SALT IRRIG SOLN COMB2 15 ML IRRIG.SOLN INTRAOCULA ONE (09:55)
[2023-10-13] MEDS: TIMOLOL 0.5% OPHTH DROPS 5 ML BTL OP PRN (09:55)
[2023-10-13] MEDS: MOXIFLOXACIN HCL 0.5% DROPS 3 ML BTL OP PRN (09:55)
--- NOTE | 2023-10-13 10:12 | P.OP ---
Date of Procedure: 10/13/23 Preoperative Diagnosis: NS Postoperative Diagnosis: same Procedure(s) Performed: PIOL, OS Implants: MX60E 20.50 Anesthesia: MAC Surgeon: Ephraim Montejo Pathology: none sent Condition: stable Disposition: same day Indications for Procedure: blurry vision Operative Findings: no complications
[2023-10-13 10:51] VITALS: BP 101/69; PULSE 74; RESP 18
--- NOTE | 2023-10-14 00:58 | OP ---
OPERATIVE REPORT DATE OF SERVICE : 10/13/2023 PREOPERATIVE DIAGNOSIS: Nuclear sclerosis. POSTOPERATIVE DIAGNOSIS: Nuclear sclerosis. OPERATION: Phacoemulsification of cataract and interocular lens implant, left eye. ESTIMATED BLOOD LOSS: Zero. SPECIMEN TAKEN: None. NARRATIVE: After obtaining the appropriate consent, the patient was brought to the operating room where the patient was placed under cardiac monitoring and prepped and draped in the usual sterile manner. At the 5 o'clock position, a 15-degree super sharp blade was used to create a paracentesis followed by instillation of 1% Xylocaine MPF 50:50 mix with BSS into the anterior chamber. This was followed by Amvisc viscoelastic to stabilize the anterior chamber. At the 3 o'clock position a self-sealing corneal flap incision was created using 2.8 mm kobi keratome. A cystotome was used to initiate a continuous tear capsulorrhexis which was completed with the Utrata forceps. A Binkhorst cannula was used to hydrodissect the lens nucleus followed by hydrodelineation. Phacoemulsification of the lens was performed utilizing phacochop in 2.37 seconds at 4.8% power. The remaining cortical material was removed using the irrigation aspiration mode followed by additional 1% Xylocaine MPF into the anterior chamber followed by viscoelastic to stabilize the capsular bag. A Bausch and Lomb MX60E 20.5 diopters posterior chamber lens was placed into the capsular bag without difficulty. The remaining viscoelastic material was removed from the anterior chamber with the irrigation/aspiration. Balanced salt solution was used to normalize the intraocular pressure. The incision was checked for watertight integrity. The patient then received 2 drops of 0.5% timolol followed by 2 drops Vigamox, was lightly patched and shielded in the usual manner. There were no complications from the procedure. The patient tolerated the procedure well and was returned to recovery in good condition. MMODL / IJN: [id number] /
== END 2023-10-13 10:56 | disposition home or self-care (01) ==
LOC: OR 08:06
PROVIDERS: ATTEND Ophthalmology
DX: H25.12 Age-related nuclear cataract, left eye (principal); J45.909 Unspecified asthma, uncomplicated; K21.9 Gastro-esophageal reflux disease without esophagitis; Z79.899 Other long term (current) drug therapy; Z79.51 Long term (current) use of inhaled steroids; Z88.1 Allergy status to other antibiotic agents
CPT/HCPCS: 66984; C1780; J2250; J0171; J3010; J2001

== ENCOUNTER → 2024-05-16 | Outpatient (CLI) | payer OTHER ==
--- NOTE | 2024-05-16 09:13 | US ---
EXAMINATION TYPE: US abdomen complete DATE OF EXAM: 05/16/2024 COMPARISON: CT 2022 CLINICAL INDICATION: Female, 54 years old with history of R74.01 ELEVATION OF LEVELS OF LIVER TRANSAM INASE L; TECHNIQUE: Grayscale and color Doppler imaging of the abdomen was performed. FINDINGS: EXAM MEASUREMENTS: Liver Length: 14.3 cm Gallbladder Wall: 0.2 cm CBD: 0.5 cm Spleen: 10.0 cm Right Kidney: 10.5 x 4.2 x 4.7 cm Left Kidney: 10.7 x 4.8 x 4.2 cm Pancreas: obscured by overlying midline bowel gas Liver: attenuating, course echotexture Gallbladder: low level echos Evidence for sonographic Sweeney's sign: no CBD: visualized portions wnl, limited by overlying bowel gas Spleen: wnl Right Kidney: wnl Left Kidney: wnl Upper IVC: wnl Abd Aorta: visualized portions wnl, limited by overlying midline bowel gas IMPRESSION: 1 mild fatty infiltration of the liver [facility], , 05/16/2024 9:11 AM
== END | disposition home or self-care (01) ==
LOC: RADUSWWP 08:13
PROVIDERS: ATTEND Family Medicine
DX: R74.01 Elevation of levels of liver transaminase levels (principal); K76.0 Fatty (change of) liver, not elsewhere classified
CPT/HCPCS: 76700